=== PATIENT | female | born 1960 | race Caucasian/White ===

== ENCOUNTER 2018-06-20 15:54 | Observation (INO) | payer OTHER ==
--- NOTE | 2018-06-20 17:03 | RAD REPORT ---
EXAM DESCRIPTION: CT - Head Brain Wo Cont - 06/20/2018 4:53 pm CLINICAL HISTORY: Chest pain, headache, dizziness COMPARISON: CT head December 2007 TECHNIQUE: Axial 5 mm thick images of the head were obtained without IV contrast. All CT scans are performed using dose optimization technique as appropriate and may include automated exposure control or mA/KV adjustment according to patient size. FINDINGS: No intracranial hemorrhage, mass, edema or shift of mid-line structures. No acute infarcti on changes seen. No abnormal extra-axial fluid collections. Ventricles are normal. Mastoid air cells are clear. Mucosal thickening with air-fluid level in the left maxillary sinus. Max illary sinus is only partially imaged. No acute bony findings. IMPRESSION: No intracranial abnormality. Left maxillary sinusitis
[2018-06-20] MEDS ORDERED: NA CHLORIDE 0.9% 1,000 ML ONE (17:14)
[2018-06-20] MEDS ORDERED: METOCLOPRAMIDE 10 MG/2mL INJ ONE (17:14)
[2018-06-20 17:24] LABS: Urine Blood NEGATIVE (NEG); Urine Glucose NEGATIVE (NEG); Urine Protein NEGATIVE (NEG); Urine Specific Gravity 1.015 (1.005-1.030)
[2018-06-20 17:27] LABS: Hematocrit 40.6 % (36.0-45.0); MCV 89.3 fL (80-100); RBC Red Blood Cell Count 4.55 M/uL (3.86-4.86)
[2018-06-20 17:28] LABS: Absolute Lymphocytes (CBC) 3.3 K/uL (0.7-4.9); Absolute Monocytes 0.4 K/uL (0.1-1.3); Absolute Neutrophil 3.4 K/uL (1.8-8.0); Basophils % 1.4 % (0-1.3); Eosinophils % 2.5 % (0-4.4); MCH 30.9 pg (27.0-35.0); MPV 6.6 fL (7.6-11.3); Monocytes % 5.8 % (3.3-12.3); Protime INR 0.95
[2018-06-20 17:52] LABS: ALT/SGPT 34 U/L (12-78); AST/SGOT 9 U/L (15-37); Albumin 4.2 g/dL (3.4-5.0); Alkaline Phosphatase 102 U/L (45-117); BUN Blood Urea Nitrogen 21 mg/dL (7-18); Bicarbonate 23 mmol/L (21-32); Bilirubin Direct < 0.1 mg/dL (0-0.2); Bilirubin Total 0.2 mg/dL (0.2-1.0); Glucose Level 86 mg/dL (74-106); Magnesium 2.1 mg/dL (1.8-2.4); NT PRO-BNP 45 pg/mL (<125); Potassium 3.8 mmol/L (3.5-5.1); Protein, Total 7.5 g/dL (6.4-8.2); Sodium Level 142 mmol/L (136-145); Troponin (Emerg Dept Use Only) < 0.02 ng/mL (0.0-0.045)
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
--- NOTE | 2018-06-20 18:14 | RAD REPORT ---
EXAM DESCRIPTION: RAD - Chest Single View - 06/20/2018 5:54 pm CLINICAL HISTORY: CHEST PAIN Chest pain. COMPARISON: No comparisons FINDINGS: Portable technique limits examination quality. The lungs are grossly clear. The heart is normal in size. No displaced fractures. IMPRESSION: No acute intrathoracic process suspected.
[2018-06-20] MEDS ORDERED: LORAZEPAM 1 MG TABLET ONE (19:37)
--- NOTE | 2018-06-20 19:37 | EKG ---
Test Date: 2018-06-20 Test Time: 16:03:33 High Man: SAMSON MEASUREMENT RESULTS: Intervals: Rate: 71 IN: 172 QRSD: 86 QT: 398 QTc: 432 Tracy: P: 77 IN: 172 QRS: 56 T: 72 INTERPRETIVE STATEMENTS: Normal sinus rhythm Normal ECG Compared to ECG 12/17/2007 15:38:43 No significant changes Electronically Signed On 06-20-18 19:36:56 CDT by Kwaku Herrera
[2018-06-20] MEDS ORDERED: ACETAMINOPHEN 500 MG TAB PO PRN (20:28)
[2018-06-20] MEDS ORDERED: ALPRAZOLAM 0.25 MG TABLET PO PRN (20:28)
[2018-06-20] MEDS ORDERED: PANTOPRAZOLE 40MG TABLET PO PRN (20:31)
[2018-06-20] MEDS ORDERED: TRAZODONE 50 MG TABLET PO PRN (20:31)
[2018-06-20] MEDS ORDERED: RANITIDINE 150 MG TABLET PO PRN (20:31)
[2018-06-20] MEDS ORDERED: ALPRAZOLAM 1 MG TABLET PO PRN (20:31)
[2018-06-20] MEDS ORDERED: ZIPRASIDONE 40 MG CAP PO SCH (21:00)
[2018-06-20] MEDS: METOPROLOL TAR 50 MG TAB PO SCH (22:15)
[2018-06-21] MEDS: MORPHINE 4 MG/ML SYR IV PRN (05:17)
[2018-06-21] MEDS ORDERED: INFLUENZA VACCINE (for 3y+) 0.5 ML DOSE IMVAC ONE (06:00)
[2018-06-21] MEDS: ZIPRASIDONE 20 MG CAP PO SCH ×2 (08:45→20:27)
[2018-06-21] MEDS: METOPROLOL TAR 50 MG TAB PO SCH ×2 (08:45→20:29)
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
[2018-06-21] MEDS ORDERED: ASPIRIN EC 81 MG TAB PO SCH (09:00)
[2018-06-21] MEDS ORDERED: REGADENOSON 0.4 MG/5 ML SYR IV ONE (10:18)
--- NOTE | 2018-06-21 12:34 | EKG ---
Test Date: 2018-06-21 Test Time: 07:45:34 Stone Finisher: FRED MEASUREMENT RESULTS: Intervals: Rate: 64 VT: 180 QRSD: 100 QT: 438 QTc: 451 Mcfarlan: P: 77 VT: 180 QRS: 70 T: 81 INTERPRETIVE STATEMENTS: Normal sinus rhythm Normal ECG Compared to ECG 06/20/2018 16:03:33 No significant changes Electronically Signed On 06-21-18 12:32:55 CDT by Jonathan Hill
--- NOTE | 2018-06-21 12:35 | ECHO ---
HEIGHT: 5 ft 2 in WEIGHT: 190 lb oz DATE OF STUDY: 06/21/[address]: Delfino Victoria MD 2-DIMENSIONAL: YES M.MODE: YES DOPPLER: YES COLOR FLOW: YES TDS: NO PORTABLE: NO DEFINITY: NO BUBBLE STUDY: NO DIAGNOSIS: CHEST PAIN, RULE OUT ACS CARDIAC HISTORY: CATHERIZATION: NO SURGERY: NO PROSTHETIC VALVE: NO PACEMAKER: NO MEASUREMENTS (cm) DIASTOLIC (NORMALS) SYSTOLIC (NORMALS) IVSd 1.2 (0.6-1.2) LA Diam 4.1 (1.9-4.0) LVEF 56% LVIDd 4.4 (3.5-5.7) LVIDs 3.2 (2.0-3.5) %FS 29% LVPWd 1.3 (0.6-1.2) Ao Diam 2.7 (2.0-3.7) 2 DIMENSIONAL ASSESSMENT: RIGHT ATRIUM: NORMAL LEFT ATRIUM: NORMAL RIGHT VENTRICLE: NORMAL LEFT VENTRICLE: NORMAL TRICUSPID VALVE: NORMAL MITRAL VALVE: NORMAL PULMONIC VALVE: NORMAL AORTIC VALVE: NORMAL PERICARDIAL EFFUSION: NONE AORTIC ROOT: NORMAL LEFT VENTRICULAR WALL MOTION: NORMAL DOPPLER/COLOR FLOW: NORMAL COMMENTS: NORMAL 2D ECHOCARDIOGRAM WITH DOPPLER. NO MITRAL VALVE PROLAPSE. NO EFFUSION. TECHNOLOGIST: Milad GALINDO
--- NOTE | 2018-06-21 12:41 | TREADPHA ---
DX: CHEST PAIN Date of Study: 06/21/2018 Ht: 5 2 Wt: 190 lb oz Consulting Physician: SHADI MEDICATIONS: TYLENOL, XANAX, ASPIRIN, LOPRESSOR, PROTONIX, TRAZODONE HISTORY: 58 YEAR OLD FEMALE WITH CHEST PAIN. PHYSICIAL EXAMINATION: RESTING B.P.: 146/76 RESTING H.R.: 57 RESTING EKG: NORMAL PROTOCOL: LEXISCAN EXERCISE TIME: 3:30 B.P. AT PEAK STRESS: 137/78 IMPRESSION: LEXISCAN INJECTED. CARDIOLITE INJECTED PER PROTOCOL. SEE NUCLEAR MEDICINE REPORT. NO CHEST PAIN. NO SUPRAVENTRICULAR TACHYCARDIA OR VENTRICULAR TACHYCARDIA NOTED. NEGATIVE STRESS TEST.
--- NOTE | 2018-06-21 12:57 | RAD REPORT ---
EXAM DESCRIPTION: NM - Rest Stress Cardiac Imaging - 06/21/2018 12:44 pm CLINICAL HISTORY: CP Chest pain. COMPARISON: No comparisons TECHNIQUE: The patient was administered approximately 10mCi of Tc 99m Sestamibi prior to resting SPE CT imaging of the heart. The patient was then administered approximately 30 mCi of Tc 99m Sestamibi f ollowing exercise or pharmacologic stress. Multiplanar SPECT images were reviewed. FINDINGS: Moderate sized area of mild stress-induced ischemia is seen along the anterior wall extend ing into the apex. No fixed defect is seen to suggest hibernating myocardium or scarred myocardium. The end diastolic volume is 89 ml, the end systolic volume is 43 ml, and the ejection fraction is 52 %. IMPRESSION: Positive for stress-induced ischemia involving the anterior wall extending to the apex.
[2018-06-21 14:56] VITALS: BMI 34.7
--- NOTE | 2018-06-21 17:28 | PN ---
Date of Progress Note: 06/21/2018 Subjective: The patient seen and examined. Chart reviewed and case discussed with RN and Dr. Hill. The patient went for stress test today, which does show some stress-induced ischemia in the anterior wall towards the apex. The patient states her chest pain is resolved, significantly improved from previous. No shortness of breath. Review of Systems: Negative except as above. Medications: List reviewed. Physical Examination: Vital Signs: Temperature 97.1, heart rate 94, blood pressure 142/64, respirations 18, O2 95% on room air. General: Awake, alert, oriented x3 without any acute distress. Appears older than stated age. Obese female. CV: S1, S2. Peripheral pulses present. No murmurs. Respiratory: Moving air well bilaterally. No wheezing or stridor. No use of accessory muscles. Gastrointestinal: Abdomen is soft, nontender, nondistended. Positive bowel sounds. Extremities: No clubbing, cyanosis, or edema. Neurologic: Nonfocal. Laboratory Data: Triglyceride 138, cholesterol 191, LDL 111, HDL 52. Echocardiogram shows EF 56%, no mitral valve prolapse, no effusion. EKG shows normal sinus rhythm, rate of 64, no significant changes from previous. Pharmacological stress test shows negative stress test. Nuclear imaging stress shows positive for stress-induced ischemia involving the anterior wall extending to the apex. Assessment And Plan: A 58-year-old female with: 1. Chest pain. Cardiac enzymes negative x3. However, stress test shows stress-induced ischemia. We will likely need cardiac catheterization. We will discuss with Cardiology. Currently chest pain free. Continue with chest pain guidelines. 2. GERD. Continue home medications. 3. Generalized anxiety disorder, stable. 4. Major depressive disorder, stable. Continue home medications. 5. HTN: Uncontrolled blood pressure with systolic in the 200s and has been in the 140s since she has been in the hospital. May need to adjust medications when she goes home. SA/MODL Voice ID: [id number] Report ID: [id number] [place]
[2018-06-21] MEDS ORDERED: TOPIRAMATE 100 MG TAB PO SCH (21:00)
[2018-06-22] MEDS: MORPHINE 4 MG/ML SYR IV PRN (07:06)
--- NOTE | 2018-06-22 07:26 | CON ---
Date of Consultation: 06/21/2018 Reason For Consultation: Chest pain. History Of Present Illness: Ms. Romano is a 58-year-old white woman, does not really have much in the way of cardiac history. She has a history of gastroesophageal reflux disease, on Xanax that she uses for anxiety. She smokes. Has a family history of heart disease. Apparently had a heart cathet erization few years ago that was normal. She came in with chest pain, diaphoresis. Chest pain descr ibed as tightness, nausea. No PND, orthopnea, pedal edema, palpitations, or syncope. By the time I saw her, she has already had an echocardiogram which was normal. Stress test had been ordered by Dr. Victoria and that was pending. Past Medical History: As stated above. Allergies: SHE IS ALLERGIC TO SULFA. Review of Systems: Negative. Social History: Positive for tobacco. Family History: Positive for heart disease. Medications: Include aspirin, Xanax, and Prilosec. Physical Examination: General: She was in no acute distress. Vital Signs: Stable. She was afebrile. HEENT: Negative. Neck: Supple without any bruit, lymphadenopathy, JVD, or thyromegaly. Chest: Clear to auscultation and percussion. Cardiac: Revealed a regular rhythm and rate without any murmurs, gallops, or rubs. Abdomen: Benign. Extremities: Revealed no clubbing, cyanosis, or edema. Diagnostic Data: Were within normal limits. Impression And Plan: 1.Atypical chest pain, although the chest tightness and diaphoresis was concerning. She seems to th ink this is related to anxiety, but we will see what her stress test shows. Her echocardiogram is no rmal. 2.Gastroesophageal reflux disease. 3.Multiple cardiac risk factors including her age, family history, and tobacco use. 4.Anxiety disorder. We will follow Ms. Romano after her stress test. JONATAN/BREONNA Voice ID: [id number] Report ID: [id number]
[2018-06-22 08:47] VITALS: TEMP 98.6
[2018-06-22] MEDS ORDERED: NA CHLORIDE 0.9% 500 ML ONE (09:25)
[2018-06-22] MEDS ORDERED: FENTANYL CITR 100 MCG/2 ML ONE (09:25)
[2018-06-22] MEDS ORDERED: ATROPINE SULF 1 MG/10 ML SYR IV ONE (09:26)
[2018-06-22] MEDS ORDERED: HEPARIN 5000 UNIT/ML 1 ML VIAL ONE (09:26)
[2018-06-22] MEDS ORDERED: NICARDIPINE HCL 25 MG/10 ML IV ONE (09:26)
[2018-06-22] MEDS ORDERED: MIDAZOLAM HCL 5 MG/5 ML INJ ONE (09:26)
[2018-06-22] MEDS ORDERED: NA CHLORIDE 0.9% 0 ML ONE (09:26)
[2018-06-22] MEDS ORDERED: HEPA 1000U/500MLS 2,000 UNIT/1,000 ML BAG IV ONE (09:26)
[2018-06-22] MEDS ORDERED: NITROGLYCERIN/D5W 25 MG/250 ML BTL IV ONE (09:27)
[2018-06-22 11:55] VITALS: O2SAT 98
--- NOTE | 2018-06-22 11:55 | OP ---
Surgeon: Kwaku Herrera MD Procedures: Left heart catheterization, coronary and left ventricular angiography. Findings: The patient has normal coronary arteries. Normal left ventricular ejection fraction, and all normal pressures. Her stress test is considered to be a false-positive and the cause of her ches t pain is noncardiac, most likely something from the GI tract, gallbladder or esophagus. Procedure In Detail: The patient was brought to the cardiac tanbark laborer in a fasting state, sedated wit h Versed. Right radial approach was used. She was prepared and draped in the usual sterile fashion. Right radial artery was identified with palpation. Tissues over the artery were anesthetized with 1% lidocaine. The artery was entered using a 21-gauge needle. A 0.021 inch diameter guidewire was u sed to cannulate the artery and then a TrendU 6-Eth[place]ian radial sheath was placed. We used this for th e remainder of the procedure. As soon as the sheath was in place, we gave a radial cocktail consisti ng of nicardipine, heparin, and nitroglycerin. We used a TIG catheter by TrendU, guided it into plac e using fluoroscopy and a TrendU Glidewire. We angiogrammed right coronary, left coronary, left vent ricle, all using the same catheter and we withdrew the catheter over a wire. The sheath was flushed removed and the arteriotomy closed with a TR band. Estimated Blood Loss: 5 cc. Complications: None. Nursing Director: Indigo Stapleton. JOSE/BREONNA Voice ID: [id number] Report ID: [id number]
[2018-06-22 13:01] VITALS: BP 110/69
--- NOTE | 2018-06-23 06:12 | DS ---
Date of Discharge: 06/22/2018 Consultants: Dr. Hill and Dr. Herrera with Cardiology. Procedures Performed: On 06/21/2018 nuclear stress test which showed ischemia and on 06/22/[address] Dr. Herrera showed normal coronary arteries, normal ejection fraction. Admitting Diagnoses: 1.Chest pain, rule out acute coronary syndrome. 2.Essential hypertension. 3.Anxiety disorder. 4.Major depressive disorder. Discharge Diagnoses: 1.Chest pain. Acute coronary syndrome ruled out. False-positive stress test with normal coronaries on cardiac catheterization, likely atypical chest pain. 2.Essential hypertension, not well controlled. The patient is started on beta-nikki and blood pre ssure is improved. 3.Generalized anxiety disorder, on benzodiazepines chronically. 4.Major depressive disorder, stable. 5.Gastroesophageal reflux disease without esophagitis. The patient currently on Nexium, had an EGD done in October of 2016, has not followed up since then. The patient has been referred to Dr. Donna guallpa, GI, as an outpatient to have further evaluation with possible esophagogastroduodenoscopy to rule out gastrointestinal abnormalities. The patient does report taking multiple doses of ibuprofen for the past week or so, approximately 4 pills of 200 mg ibuprofen at a time, and also had been taking Ex cedrin. Hospital Course: The patient's overall stay was stable. She came in with chest pain. She was admit dina to the hospital, had a stress test and coronary catheterization due to a positive stress test. H er cardiac enzymes were negative. Heart catheterization did not show any abnormality. She had librado l coronary arteries. The patient was then cleared from Cardiology standpoint. Her pain was likely a typical, perhaps from the GI tract. The patient does have history of gastroesophageal reflux disease , on Nexium, has been taking multiple doses of ibuprofen and needs repeat EGD. The patient has been referred to GI as outpatient. The patient's blood pressure otherwise improved with medications and s he will be continued on beta-blockers going forward. The patient was then discharged home in a stabl e condition. Activity: As tolerated. No driving or operating heavy machinery while on benzodiazepines. Diet: Heart healthy. Discharge Instructions: Wound care instructions for post cardiac catheterization. Follow up with P 2 in days. Follow up with dispatcher radio, Dr. Herrera, in 2 weeks. Follow up with GI, Dr. Bonner, today if possible, otherwise within a couple of weeks. Return to ER for worsening condition. Physical Examination: General: Awake, alert, oriented x3. No acute distress. CV: S1, S2. No murmurs. Respiratory: Moving air well bilaterally. No wheezing. Gastrointestinal: Abdomen is soft, nontender, nondistended. Positive bowel sounds. Extremities: No clubbing, cyanosis, edema. Neurologic: Nonfocal. SA/MODL Voice ID: [id number] Report ID: [id number]
== END 2018-06-22 13:50 | disposition home or self-care (01) ==
LOC: ER 15:54 → ERHOLD 18:13 → 2ND 20:41
PROVIDERS: ADMIT Hospitalist; ATTEND Hospitalist
DX: R07.9 Chest pain, unspecified (principal); I10 Essential (primary) hypertension; F41.8 Other specified anxiety disorders; K21.9 Gastro-esophageal reflux disease without esophagitis; Z23 Encounter for immunization; F17.210 Nicotine dependence, cigarettes, uncomplicated; Z88.2 Allergy status to sulfonamides
CPT/HCPCS: 36415; 70450; 71045; 78452; 80048; 80061; 80076; 81003; 81025; 82962; 83735; 83880; 84484 ×2; 85025; 85610; 93005 ×2; 93017; 93306; 93458; 96361; 96374; 99285; A9500; C1893; G0008; G0378 ×2; J1644; J2250; J2765; J2785; J3010; J7030; Q2035; J0583

== ENCOUNTER 2018-10-17 19:50 | Observation (INO) | payer OTHER ==
--- OUTSIDE RECORDS SUMMARY | 2018-10-17 19:52 | XMS REPORT ---
:1960 Author Organization [employer] Care Team Providers Name Role Phone Claudio Silver Provider Role Unavailable Allergies, Adverse Reactions, Alerts Substance Reaction Event Type Sulfa Info Not Available Drug Allergy Problems Problem Type Condition Code Onset Dates Condition Status Assessment Insomnia, unspecified type G47.00 Active Assessment Depression with anxiety F41.8 Active Assessment HTN, goal below 140/90 I10 Active Problem Insomnia, unspecified type G47.00 Active Problem Bipolar affective disorder, current F31.30 Active episode depressed, current episode severity unspecified Problem Depression with anxiety F41.8 Active Assessment Bipolar affective disorder, current F31.30 Active episode depressed, current episode severity unspecified Problem HTN, goal below 140/90 I10 Active Problem Medication refill Z76.0 Active Medications Medication Code Code Instructions Start End Status Dosage System Date Date Xanax [facility] 27208548533 1 MG Orally Once Active 1 tablet a day Geodon [facility] 75395564979 80 MG Orally Active 1 capsule Twice a day with food Niacin [facility] 52367144561 100 MG Orally Active 1 tablet Once a day with food Co Q 10 [facility] 84029620188 60 MG Orally Active 1 capsule Once a day with a meal Fish Oil [facility] 28101773776 500 MG Orally Active 1 capsule Twice a day Aspir-81 [facility] 39258274904 81 MG Orally Active 1 tablet Once a day Potassium [facility] 83414544659 75 MG Orally Active 1 tablet Once a day Vitamin B 12 [facility] 66363550393 100 MCG Orally Active as directed Milk Thistle [facility] 08496354313 500 MG Orally Active as directed Topamax [facility] 61029097343 100 MG Orally Active 1 tablet Twice a day Trazodone HCl [facility] 80651812469 100 MG Orally Active 1 tablet at Once a day bedtime Results No Known Results Summary Purpose [employer]ClinicalWorks Submission
[2018-10-17] MEDS ORDERED: NA CHLORIDE 0.9% 500 ML ONE (22:26)
[2018-10-17] MEDS ORDERED: MORPHINE 4 MG/ML SYR ONE (22:26)
[2018-10-17] MEDS ORDERED: ONDANSETRON 4 MG/2 ML VIAL ONE (22:26)
[2018-10-17 22:44] LABS: Absolute Lymphocytes (CBC) 0.9 K/uL (0.7-4.9); Absolute Monocytes 0.9 K/uL (0.1-1.3); Absolute Neutrophil 6.2 K/uL (1.8-8.0); Basophils % 0.5 % (0-1.3); Eosinophils % 0.8 % (0-4.4); Hematocrit 39.5 % (36.0-45.0); Lymphocytes % 10.6 % (15.3-44.8); MPV 7.1 fL (7.6-11.3); Monocytes % 11.7 % (3.3-12.3); RBC Red Blood Cell Count 4.39 M/uL (3.86-4.86)
[2018-10-17 22:53] LABS: Albumin 3.4 g/dL (3.4-5.0); Bilirubin Direct 0.1 mg/dL (0-0.2); Bilirubin Total 0.4 mg/dL (0.2-1.0); Potassium 3.5 mmol/L (3.5-5.1); Protein, Total 6.5 g/dL (6.4-8.2)
[2018-10-17 23:49] LABS: Urine Blood NEGATIVE (NEG); Urine Glucose NEGATIVE (NEG); Urine Protein NEGATIVE (NEG); Urine Specific Gravity 1.015 (1.005-1.030); Urine pH 6.5 (5.0-7.0)
[2018-10-18] MEDS ORDERED: ACETAMINOPHEN 500 MG TAB PO PRN (01:11)
[2018-10-18] MEDS: AMPICILLIN/SULBACT 3 GM in NA CHLORIDE 0.9% 100 ML IVPB SCH ×4 (01:12→17:22)
[2018-10-18] MEDS ORDERED: HYDROCORTISONE SUC 100 MG INJ IV ONE (01:14)
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
[2018-10-18] MEDS ORDERED: VANCOMYCIN 1 GM/250 ML BAG ONE (01:28)
[2018-10-18] MEDS ORDERED: VANCOMYCIN 1.25 GM in NA CHLORIDE 0.9% 250 ML IVPB SCH (02:00)
[2018-10-18] MEDS: NA CHLORIDE 0.9% 1,000 ML IV SCH ×4 (03:31→21:33)
[2018-10-18] MEDS: ONDANSETRON 4 MG/2 ML VIAL IV PRN ×4 (03:32→21:42)
[2018-10-18] MEDS: MORPHINE 4 MG/ML SYR IV PRN ×3 (03:36→21:43)
[2018-10-18] MEDS ORDERED: AMPICILLIN/SULBACTAM 3GM/VIAL ONE (03:48)
[2018-10-18] MEDS ORDERED: VANCOMYCIN 500 MG/VIAL ONE (04:13)
[2018-10-18] MEDS ORDERED: NA CHLORIDE 0.9% 100 ML ONE ×2 (04:13→05:23)
[2018-10-18] MEDS ORDERED: VANCOMYCIN 500 MG in NA CHLORIDE 0.9% 100 ML IVPB ONE (04:15)
[2018-10-18 04:35] VITALS: BMI 35.1
[2018-10-18 06:32] LABS: Absolute Lymphocytes (CBC) 0.8 K/uL (0.7-4.9); Absolute Monocytes 0.5 K/uL (0.1-1.3); Absolute Neutrophil 6.6 K/uL (1.8-8.0); Basophils % 0.3 % (0-1.3); Eosinophils % 0.5 % (0-4.4); Hematocrit 36.1 % (36.0-45.0); Lymphocytes % 9.7 % (15.3-44.8); MPV 7.4 fL (7.6-11.3); Monocytes % 6.4 % (3.3-12.3); RBC Red Blood Cell Count 4.06 M/uL (3.86-4.86)
[2018-10-18 06:59] LABS: Magnesium 1.9 mg/dL (1.8-2.4); Phosphorus 2.4 mg/dL (2.5-4.9); Potassium 3.8 mmol/L (3.5-5.1)
[2018-10-18 07:00] LABS: Urine Appearance CLEAR; Urine Bilirubin NEGATIVE (NEG); Urine Blood NEGATIVE (NEG); Urine Color YELLOW; Urine Glucose NEGATIVE (NEG); Urine Protein NEGATIVE (NEG); Urine Specific Gravity >=1.030 (1.005-1.030); Urine pH 5.5 (5.0-7.0)
[2018-10-18 07:07] LABS: Urine Microscopic Reflex NO UMIC
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
[2018-10-18] MEDS ORDERED: PROPOFOL 200 MG/20 ML VIAL IV ONE (10:38)
[2018-10-18] MEDS ORDERED: FENTANYL CITR 100 MCG/2 ML ONE (10:38)
[2018-10-18] MEDS ORDERED: LIDOCAINE 2% MPF 5 ML VIAL ONE (10:38)
[2018-10-18] MEDS ORDERED: ONDANSETRON 4 MG/2 ML VIAL ONE (10:38)
[2018-10-18] MEDS ORDERED: MIDAZOLAM HCL 2 MG/2 ML INJ ONE (10:39)
[2018-10-18] MEDS ORDERED: Ringers Lactate 1,000 ML IV ONE (10:49)
[2018-10-18] MEDS ORDERED: NA CIT/CITRIC AC 30 ML ORAL UDC ONE (10:53)
[2018-10-18] MEDS ORDERED: LIDOCAINE 1% MPF 30 ML VIAL ONE (10:58)
[2018-10-18] MEDS ORDERED: BUPIVACAINE 0.5% PF 10 ML VIAL ONE (10:58)
--- NOTE | 2018-10-18 11:25 | P.OP ---
Preoperative diagnosis: Abscess and Cellulitis Right Abdominal Wall Abscess Postoperative diagnosis: same Primary procedure: I and D and Debridement Right Abdominal Wall Abscess Anesthesia: MAC Estimated blood loss: min Specimen: pus Findings: as above Complications: None Transferred to: Recovery Room Condition: Good
[2018-10-18] MEDS ORDERED: CHLORHEXIDINE GLUCO 4% 120 ML TOP SCH (12:00)
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
[2018-10-18] MEDS ORDERED: VANCOMYCIN 1.5 GM in NA CHLORIDE 0.9% 500 ML IVPB SCH (15:00)
--- NOTE | 2018-10-18 18:05 | RAD REPORT ---
EXAM DESCRIPTION: Abdomen Pelvis W Contrast CLINICAL HISTORY: 58 years Female abdominal pain and swelling. COMPARISON: None. TECHNIQUE: Images were obtained in axial, sagittal, and coronal planes. Intravenous and oral contras t was administered. This exam was performed according to our departmental does-optimization program, which includes autom ated exposure control, adjustment of the mA and/or kV according to patient size and/or less of iterat manpreet reconstruction technique FINDINGS: 1.2 cm low-attenuation focus posterior medial left lobe of liver likely hepatic cyst. Unre markable spleen, pancreas, gallbladder, and adrenal glands bilaterally. No obstructing renal calcifications bilaterally. No hydronephrosis bilaterally. Unremarkable bladder. Appendix within normal limits. Mucosal thickening terminal ileum and mid ileum. No bowel obstruction or perforation. Calcification of abdominal aorta with no dilatation seen. Unremarkable portal vein. No adenopathy or abdominal fluid collections seen. Increased attenuation subcutaneous fat right lower abdomen possibly cellulitis or edema. No acute osseous abnormality. Postsurgical changes L4-5 and L5-S1 levels posteriorly. Intervertebral disc space narrowing L5-S1. Diffuse bulging L4-L5 and L5-S1 intervertebral discs. Calcified granuloma right lower lobe. IMPRESSION: Mucosal thickening terminal ileum and mid ileum. Consider enteritis. Edema versus cellulitis subcutaneous fat right lower abdomen laterally. No focal abscess seen. Electronically signed by Brianda Casillas MD 10/18/2018 12:33 AM PATIENT MONITOR Due to temporary technical issues with the PACS/Fluency reporting system, reports are being signed by the in house radiologist as a courtesy to ensure prompt reporting. The interpreting radiologist is f ully responsible for the content of the report.
[2018-10-18] MEDS: VANCOMYCIN 1.5 GM in NA CHLORIDE 0.9% 500 ML IVPB SCH (21:31)
[2018-10-18] MEDS: MUPIROCIN 2% OINT 22GM TUBE TOP SCH (21:32)
--- NOTE | 2018-10-18 22:54 | OP ---
Date of Procedure: 10/18/2018 Surgeon: Roni Bowles MD Preoperative Diagnosis: Abscess and cellulitis, right abdominal wall. Postoperative Diagnosis: Abscess and cellulitis, right abdominal wall. Procedure: Incision, drainage, and debridement, right abdominal wall abscess. Estimated Blood Loss: Minimal. Specimen: Pus. Findings: As above. Anesthesia: MAC. Complications: None. Disposition: The patient tolerated the procedure in stable condition and was taken to Recovery in go od general condition. Description Of Procedure: The patient was brought to the OR and placed in supine position. MAC anes thesia was begun. The patient was prepped and draped in the usual sterile fashion. Lidocaine 1% was infiltrated locally. A 15-blade was used to make a 4-cm incision. Subcutaneous tissue was divided. Deep to that, large amount of pus was evacuated, cultured with aerobic and anaerobic. Wound was ir rigated. Bleeding was controlled with cautery. Necrotic tissue was debrided. Bleeding was controll ed with cautery. Wound was irrigated, and then wet-to-dry normal saline dressing change was applied. The patient tolerated the procedure in stable condition and was taken to Recovery in good general conditi on. /MODL Voice ID: [id number] Report ID: [id number]
[2018-10-19] MEDS: AMPICILLIN/SULBACT 3 GM in NA CHLORIDE 0.9% 100 ML IVPB SCH ×2 (00:26→05:11)
[2018-10-19] MEDS: ONDANSETRON 4 MG/2 ML VIAL IV PRN ×2 (02:03→21:20)
[2018-10-19] MEDS: MORPHINE 4 MG/ML SYR IV PRN ×2 (02:03→14:07)
[2018-10-19] MEDS ORDERED: ONDANSETRON 4 MG/2 ML VIAL IV ONE (04:30)
[2018-10-19 07:42] VITALS: O2SAT 96
[2018-10-19] MEDS: NA CHLORIDE 0.9% 1,000 ML IV SCH ×3 (08:00→18:00)
[2018-10-19] MEDS: HYDROCODONE/APAP 7.5/325 MG TAB PO PRN ×2 (08:28→22:27)
[2018-10-19] MEDS: MUPIROCIN 2% OINT 22GM TUBE TOP SCH ×2 (08:28→21:00)
--- NOTE | 2018-10-19 12:07 | PN ---
Date of Progress Note: 10/19/2018 Subjective: The patient is awake, alert. No complaint. Objective: Vital signs: Stable afebrile. Laboratory Data: Cultures grew out gram-positive, coagulase-positive, but the sensitivity is not out yet. Abdomen: Soft, nondistended. The moderate redness is less, it is not as angry appearing. The wound itself is clean. There is no purulence. Assessment: Status post incision and drainage. Right abdominal wall abscess. Plan: Continue IV antibiotics. Wound care as ordered. Once we get the cultures, the patient could be discharged home on oral antibiotics that she is sensitive to. /MODL Voice ID: [id number] Report ID: [id number]
[2018-10-19] MEDS: VANCOMYCIN 1.5 GM in NA CHLORIDE 0.9% 500 ML IVPB SCH (14:07)
--- NOTE | 2018-10-19 18:42 | P.PN ---
Subjective Date of Service: 10/19/18 Chief Complaint: abdominal wall abscess /cellulitis Subjective: No C/O voiced Physical Examination - Vital Signs Temperature: 97.2 F Blood Pressure: 182/82 Pulse: 70 Respirations: 16 Pulse Ox (%): 93 Assessment And Plan - Plan (1) Abdominal wall abscess Continue with IV antibiotic, pending I and D and wound cultures. Continue with local wound care Surgical consultation, recommendations appreciated (2) Anxiety disorder (3) Depression (4) History of hypertension Continue home medications. Stable at this time DVT prophylaxis: Lovenox GI prophylaxis: None Diet: Heart healthy Disposition: Pending IND, wound culture sensitivities. Will likely discharge home in the next 24-48 hr on oral antibiotics once sensitivities are received. Discharge Plan: Home
[2018-10-20] MEDS: NA CHLORIDE 0.9% 1,000 ML IV SCH (06:46)
[2018-10-20] MEDS: VANCOMYCIN 1.5 GM in NA CHLORIDE 0.9% 500 ML IVPB SCH (10:19)
[2018-10-20] MEDS: MUPIROCIN 2% OINT 22GM TUBE TOP SCH (10:19)
[2018-10-20] MEDS: HYDROCODONE/APAP 7.5/325 MG TAB PO PRN (10:57)
--- NOTE | 2018-10-20 12:44 | PN ---
Date of Progress Note: 10/20/2018 Subjective: The patient is awake, alert. No complaint. Objective: Vital signs: Stable, afebrile. Abdomen: Decreasing redness. No purulence. Laboratory Data: Cultures show MRSA, sensitivities reviewed. Assessment: Status post incision and drainage, debridement, right abdominal wall abscess. Recommendation: Recommend Cipro and doxycycline for 2 weeks. Hibiclens and Bactroban are ordered. Wound care is ordered. Follow up in my office in 2 weeks. LUCIAN/BREONNA Voice ID: [id number] Report ID: [id number]
[2018-10-20 15:05] VITALS: BP 144/86; TEMP 97.9
[2018-10-21] MEDS ORDERED: VANCOMYCIN 1.75 GM in NA CHLORIDE 0.9% 500 ML IVPB SCH (03:00)
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
== END 2018-10-20 13:35 | disposition home or self-care (01) ==
LOC: ER 19:50 → ERHOLD 10-18 01:22 → 4TH 10-18 02:19
PROVIDERS: ADMIT Hospitalist; ATTEND Hospitalist
PROC: 0J980ZZ Drainage of Abdomen Subcutaneous Tissue and Fascia, Open Approach (ICD-10-PCS; principal; 2018-10-18 10:00)
DX: L02.211 Cutaneous abscess of abdominal wall (principal); B95.62 Methicillin resistant Staphylococcus aureus infection as the cause of diseases classified elsewhere; F41.9 Anxiety disorder, unspecified; F31.9 Bipolar disorder, unspecified; Z87.891 Personal history of nicotine dependence; F41.8 Other specified anxiety disorders; I10 Essential (primary) hypertension; Z88.2 Allergy status to sulfonamides
CPT/HCPCS: 10060; 36415 ×2; 74177; 80048 ×2; 80076; 80202; 81003 ×2; 82565; 83036; 83605; 83690; 83735; 84100; 84145; 85025 ×2; 87040 ×2; 87070; 87075; 87077; 87186; 87205 ×2; 96361; 96365; 96375; 99285; G0378 ×2; J0295 ×3; J1720; J2250; J2405 ×9; J2704; J3010; J3370; J7030 ×5; Q9967